=== PATIENT | female | born 1970 | race Caucasian/White ===

== ENCOUNTER 2016-12-21 16:23 | Emergency (ER) | payer OTHER, MEDICARE ==
[~2016-12-21] VITALS: Ht 170.2 cm; Wt 136.1 kg
[2016-12-21 16:34] VITALS: BP 147/82
--- NOTE | 2016-12-21 17:36 | ULTRASOUND REPORT ---
EXAMINATION: US TRIPLEX LOWER EXTREMITY, RIGHT CLINICAL INFORMATION: Edema. COMPARISON: None TECHNIQUE: Color-flow triplex imaging with spectral analysis and compression Doppler were performed on the lower extremity. FINDINGS: The exam is limited by body habitus. Respiratory variation, normal compression and augmented flow are noted throughout the left lower extremity. The visualized common femoral vein, superficial femoral vein, profunda femoral vein, popliteal vein and midcalf peroneal and posterior tibial venous segments show no evidence of deep venous thrombosis. Complex popliteal cyst measuring 3.7 x 3.8 x 6 cm. IMPRESSION: 1. Normal triplex scan without evidence of deep venous thrombosis involving the lower extremity. 2. Complex popliteal cyst.
--- NOTE | 2016-12-21 18:14 | ED UPPER/LOWER EXTREMITY COMPL ---
History of Present Illness General Chief Complaint: Lower Extremity Problems Stated Complaint: SENT BY WALK IN TO R/O DVT R LEG Source: patient Exam Limitations: no limitations Vital Signs & Intake/Output Vital Signs & Intake/Output Vital Signs Date Time Temp Pulse Resp B/P B/P Pulse O2 O2 Flow FiO2 Mean Ox Delivery Rate 12/21 1634 97.4 98 18 147/82 98 Room Air Allergies Coded Allergies: Latex, Natural Rubber (RASH 12/21/16) Reconcile Medications Albuterol Sulfate (Ventolin Hfa) 90 MCG HFA.AER.AD 2 PUF INH Q4-6 PRN PRN ASTHMA (Reported) Budesonide/Formoterol Fumarate (Symbicort 80-4.5 Mcg Inhaler) 80 MCG-4.5 MCG/ ACTUATION HFA.AER.AD 2 PUF INH BID ASTHMA (Reported) Bupropion HCl (Wellbutrin XL) 300 MG TAB.ER.24H 1 TAB PO QAM MENTAL HEALTH ( Reported) Bupropion HCl (Bupropion XL) 150 MG TAB.ER.24H 1 TAB PO QAM MENTAL HEALTH ( Reported) Buspirone HCl 10 MG TABLET 2 TAB PO TID MENTAL HEALTH (Reported) Cholecalciferol (Vitamin D3) (Vitamin D) (Unknown Strength) TABLET (Unknown Dose) PO DAILY SUPPLEMENT (Reported) Duloxetine HCl 60 MG CAPSULE.DR 2 CAP PO QAM MENTAL HEALTH (Reported) Gabapentin 300 MG CAPSULE 1 CAP PO QAM NERVE PAIN (Reported) Gabapentin 600 MG TABLET 1 TAB PO BID NERVE PAIN (Reported) Glimepiride 1 MG TABLET 1 TAB PO QAM DM (Reported) Ibuprofen 800 MG TABLET 1 TAB PO TID PAIN Levothyroxine Sodium 200 MCG TABLET 1 TAB PO DAILY THYROID (Reported) Lisinopril 10 MG TABLET 1 TAB PO DAILY BP (Reported) Metformin HCl 1,000 MG TABLET 1 TAB PO BID DM (Reported) Omeprazole 40 MG CAPSULE.DR 1 CAP PO DAILY GI (Reported) Oxycodone HCl/Acetaminophen (Percocet 5-325 MG Tablet) 5 MG-325 MG TABLET 1-2 TAB PO Q6P PRN PAIN Simvastatin (Simvastatin*) 10 MG TABLET 1 TAB PO QPM CHOLESTEROL (Reported) Triage Note: PRESENTS TO ED FOR EVALUATION RECOMMENDED BY CLINIC TO R/O DVTV OF THE RIGHT LOWER LEG. SHE REPORTS TO HAVE FALLEN LAST WEDNESDAY WITH + SWELLING AND BRUISING TO THE RIGHT LOWER EXTREMITY Triage Nurses Notes Reviewed? yes Onset: Abrupt Duration: day(s):, constant, continues in ED Timing: recent history Severity: moderate, severe Pain/Injury Location: Right: Leg, Knee. No Modifying Factors: none HPI: 46-year-old female comes into emergency room for further evaluation of right leg pain and right knee pain. Patient reports that she fell last . She had fallen out of bed and came down on her right knee and lower leg. Denies hitting her head. Denies any LOC. Patient reports that she was seen a walking clinic and had an x-ray done of her right knee. There was no fracture. She was told to come to the hospital to have a DVT ruled out. She denies any other associated symptoms. Denies any other trauma. (PREMA SALAZAR) Past History Travel History Traveled to [place] past 21 day No Medical History Any Pertinent Medical History? see below for history Cardiovascular: HTN, HIGH CHOLESTEROL Psychiatric: DEPRESSION, ANXIETY Endocrine: DM TYPE 2 History of MRSA: No History of VRE: No History of CDIFF: No Influenza Vaccine: 04/08/12 Surgical History Surgical History: non-contributory Psychosocial History Who do you live with Friend Services at Home None What is your primary language Monegasque Tobacco Use: Current Daily Use Daily Tobacco Use Amount/Type: => 5 Cigarettes daily Family History Hx Contributory? No (PREMA SALAZAR) Review of Systems Review of Systems Constitutional: Reports: no symptoms. EENTM: Reports: no symptoms. Respiratory: Reports: no symptoms. Cardiovascular: Reports: no symptoms. Gastrointestinal/Abdominal: Reports: no symptoms. Genitourinary: Reports: no symptoms. Musculoskeletal: Reports: see HPI. Skin: Reports: see HPI. Neurological/Psychological: Reports: no symptoms. Hematologic/Endocrine: Reports: no symptoms. Immunological: Reports: no symptoms. All Other Systems: Reviewed and Negative (PREMA SALAZAR) Physical Exam Physical Exam General Appearance: well developed/nourished, mild distress Head: atraumatic Eyes: Bilateral: normal appearance. Ears, Nose, Throat: normal ENT inspection, hearing grossly normal Neck: normal inspection Cardiovascular/Respiratory: no respiratory distress Back: normal inspection Leg Right: ecchymosis, soft tissue tenderness, limited range of motion Knee Right: ecchymosis, soft tissue tenderness, limited range of motion Neurologic/Tendon: normal sensation, normal motor functions, normal tendon functions, responds to pain, no evidence tendon injury, no pulse deficit Skin: intact, normal color, warm/dry Lymphatic: no anterior cervical ismael (PREMA SALAZAR) Progress Differential Diagnosis: contusion, dislocation, fracture, gout, septic arthritis , sprain, tendon injury Plan of Care: Orders Procedure Date/time Status Durable Medical Equipment 12/21 1848 Active Diagnostic Imaging: Viewed by Me: Radiology Read, Ultrasound. Discussed w/RAD: Radiology Read, Ultrasound. Radiology Impression: EXAM TYPE: RAD - [id number]-[id number], RIGHT EXAMINATION: XR TIBIA AND FIBULA, RIGHT CLINICAL INFORMATION: Right lower extremity pain and bruising. COMPARISON: None TECHNIQUE: AP and lateral views of the right tibia and fibula were obtained. FINDINGS: No acute fracture or cortical disruption. Anatomic alignment at the knee and ankle. Mild degenerative changes of the knee with osteophyte formation. Small plantar heel spur. There is extensive soft tissue swelling. Lateral soft tissue calcifications at the level of the mid fibula. IMPRESSION: Extensive soft tissue swelling. No acute osseous abnormality. DICTATED BY: MARITA KNIGHT MD DATE/TIME DICTATED:12/21/161836 UPPER LEATHER CUTTER:RAMOS DATE/TIME TRANSCRIBED:12/21/161836, SERVICE DATE: 12/21/16 EXAM TYPE: US - US-UNILATERAL VENOUS DOPPLER EXAMINATION: US TRIPLEX LOWER EXTREMITY, RIGHT CLINICAL INFORMATION: Edema. COMPARISON: None TECHNIQUE: Color-flow triplex imaging with spectral analysis and compression Doppler were performed on the lower extremity. FINDINGS: The exam is limited by body habitus. Respiratory variation, normal compression and augmented flow are noted throughout the left lower extremity. The visualized common femoral vein, superficial femoral vein, profunda femoral vein, popliteal vein and midcalf peroneal and posterior tibial venous segments show no evidence of deep venous thrombosis. Complex popliteal cyst measuring 3.7 x 3.8 x 6 cm. IMPRESSION: 1. Normal triplex scan without evidence of deep venous thrombosis involving the lower extremity. 2. Complex popliteal cyst. DICTATED BY: JESSICA QUIROZ MD DATE/ TIME DICTATED:12/21/161724 UPPER LEATHER CUTTER:RAMOS DATE/TIME TRANSCRIBED: 12/21/161724 CONFIDENTIAL, DO NOT COPY WITHOUT APPROPRIAT (PREMA SALAZAR) Departure Departure Disposition: HOME OR SELF CARE Condition: Stable Clinical Impression Primary Impression: Contusion of right lower leg Referrals: BULL GROSS,KATHY Ocampo (PCP/Family) MAURICE MONTALVO,JEREMIAH Additional Instructions: Take ibuprofen for pain. Follow-up with orthopedic doctor. Return if any concerns worsening symptoms. Ice. Rest. Weightbearing as tolerated. Please go over all results of today's visit with your primary care doctor. Contact your primary care doctor to let them know you were here in the emergency room. There may be nonspecific findings which may not be related to your visit today here in the emergency room but may require further evaluation and chronic monitoring by your primary care doctor. If you had a laceration today the chance of foreign body always remains. You should follow-up with your primary care doctor for recheck in 3-5 days for a wound check. If you had an x-ray done there is a chance that a fracture could have been missed on initial read and you should follow-up with your primary care doctor for repeat x-rays if symptoms persist. If your blood pressure was elevated here in the emergency room please have rechecked by her primary care doctor within the next 48 hours by your primary care doctor. If you were prescribed a narcotic here in the emergency room or any type of controlled substances you're not allowed to drive while taking this medication or operate any type of heavy machinery. Narcotics can make you feel lightheaded dizziness nausea and can cause constipation. You may need to belt picker a stool softener. Thank you for choosing [facility] emergency room. Please return to the emergency room immediately if you have any other concerns worsening of symptoms. Departure Forms: Customer Survey General Discharge Information Prescriptions: Current Visit Scripts Oxycodone HCl/Acetaminophen (Percocet 5-325 MG Tablet) 1-2 TAB PO Q6P PRN PAIN #10 TAB Ibuprofen 1 TAB PO TID #30 TAB Comments 12/21/2016 7:19:07 PM Patient clinically looks well. Nontoxic-appearing. In no apparent distress. No evidence of fracture. Follow-up with primary care doctor. Follow-up with orthopedic. Return if any other concerns. (PREMA SALAZAR) PA/LINING MAKER Co-Sign Statement Statement: ED Attending supervision documentation- [] I saw and evaluated the patient. I have also reviewed all the pertinent lab results and diagnostic results. I agree with the findings and the plan of care as documented in the PA's/LINING MAKER's documentation. [X] I have reviewed the ED Record and agree with the PA's/LINING MAKER's documentation. [] Additions or exceptions (if any) to the PAs/LINING MAKER's note and plan are summarized below: [] (KARY MONTALVO,DONN Whaley)
[2016-12-21] MEDS ORDERED: LISINOPRIL10 M1 PO (18:35)
[2016-12-21] MEDS ORDERED: GABAPENTIN300 M2 PO (18:35)
[2016-12-21] MEDS ORDERED: DULOXETINE HCL60 MG PO (18:36)
[2016-12-21] MEDS ORDERED: GABAPENTIN600 M1 PO (18:36)
[2016-12-21] MEDS ORDERED: WELLBUTRIN XL300 M2 PO (18:37)
[2016-12-21] MEDS ORDERED: BUPROPION XL150 MG PO (18:37)
[2016-12-21] MEDS ORDERED: BUSPIRONE HCL10 M1 PO (18:38)
[2016-12-21] MEDS ORDERED: SIMVASTATIN10 M1 PO (18:39)
[2016-12-21] MEDS ORDERED: GLIMEPIRIDE1 M1 PO (18:39)
[2016-12-21] MEDS ORDERED: VENTOLIN HFA18 GM INH (18:39)
[2016-12-21] MEDS ORDERED: SYMBICORT 80-10.2 GM INH (18:40)
[2016-12-21] MEDS ORDERED: METFORMIN HCL1000 M1 PO (18:40)
[2016-12-21] MEDS ORDERED: OMEPRAZOLE40 M1 PO (18:40)
[2016-12-21] MEDS ORDERED: LEVOTHYROXINE200 MC1 PO (18:40)
[2016-12-21] MEDS ORDERED: VITAMIN D1000 UNIT PO (18:40)
--- NOTE | 2016-12-21 18:41 | RADIOLOGY REPORT ---
EXAMINATION: XR TIBIA AND FIBULA, RIGHT CLINICAL INFORMATION: Right lower extremity pain and bruising. COMPARISON: None TECHNIQUE: AP and lateral views of the right tibia and fibula were obtained. FINDINGS: No acute fracture or cortical disruption. Anatomic alignment at the knee and ankle. Mild degenerative changes of the knee with osteophyte formation. Small plantar heel spur. There is extensive soft tissue swelling. Lateral soft tissue calcifications at the level of the mid fibula. IMPRESSION: Extensive soft tissue swelling. No acute osseous abnormality.
[2016-12-21] MEDS ORDERED: IBUPROFEN800 M1 PO (19:10)
[2016-12-21] MEDS ORDERED: PERCOCET 5-3251 EACH PO (19:10)
== END 2016-12-21 19:03 ==
LOC: ERH 16:23
DX: S80.11XA Contusion of right lower leg, initial encounter (principal); W06.XXXA Fall from bed, initial encounter; Y93.9 Activity, unspecified; Y92.9 Unspecified place or not applicable
CPT/HCPCS: 73590-RT

== ENCOUNTER 2017-09-14 13:29 | Inpatient (IN) | payer OTHER, MEDICARE ==
[~2017-09-14] VITALS: Ht 170.2 cm; Wt 136.5 kg
[~2017-09-14 13:29] MED LIST: ASPIRIN EC81 M1 PO; BIOTENE PBF473 ML PO; BUPROPION XL150 MG PO; BUSPIRONE HCL10 M1 PO; CEPHALEXIN500 M3 PO; DULOXETINE HCL60 MG PO; FUROSEMIDE20 M1 PO; GABAPENTIN300 M2 PO; GABAPENTIN600 M1 PO; GLIMEPIRIDE1 M1 PO; IBUPROFEN800 M1 PO; LEVOTHYROXINE200 MC1 PO; LISINOPRIL10 M1 PO; METFORMIN HCL1000 M1 PO; OMEPRAZOLE40 M1 PO; PERCOCET 5-3251 EACH PO; SIMVASTATIN10 M1 PO; SINGULAIR10 M1 PO; SULFAMETHOXAZO1 EAC1 PO; SYMBICORT 80-10.2 GM INH; TRAMADOL HCL50 M1 PO; VENTOLIN HFA18 GM INH; VITAMIN D1000 UNIT PO; VOLTAREN100 GM TOP; WELLBUTRIN XL300 M2 PO
[2017-09-14 19:05] LABS: ABSOLUTE BASOPHIL COUNT 0.1 /CUMM (0.0-0.2); ABSOLUTE EOSINOPHIL COUNT 0.3 /CUMM (0.0-0.7); ABSOLUTE GRANULOCYTE CT 5.1 /CUMM (1.4-6.5); ABSOLUTE LYMPH COUNT 2.4 /CUMM (1.2-3.4); ABSOLUTE MONOCYTE COUNT 0.5 /CUMM (0.10-0.60); BASOPHIL % 0.7 % (0.0-2.0); GRANULOCYTE % 61.4 % (42.2-75.2); HEMATOCRIT 36.6 % (37-47); MEAN CORPUSCULAR HGB 26.8 PG (27.0-31.0); MEAN CORPUSCULAR HGB CONC 32.9 G/DL (33.0-37.0); MEAN CORPUSCULAR VOLUME 81.4 FL (81.0-99.0); MEAN PLATELET VOLUME 8.2 FL (7.4-10.4); PLATELET COUNT 258 /CUMM (130-400); RBC DISTRIBUTION WIDTH 16.5 % (11.5-14.5); RED BLOOD CELL CT 4.49 /CUMM (4.20-5.40); WHITE BLOOD CELL COUNT 8.4 /CUMM (4.8-10.8)
--- NOTE | 2017-09-14 19:34 | ED UPPER/LOWER EXTREMITY COMPL ---
History of Present Illness General Chief Complaint: Lower Extremity Problems Stated Complaint: L FOOT INFECTION Source: patient Exam Limitations: no limitations Allergies Coded Allergies: Latex, Natural Rubber (RASH 12/21/16) codeine (RASH 09/14/17) Reconcile Medications Albuterol Sulfate (Ventolin Hfa) 90 MCG HFA.AER.AD 2 PUF INH Q4-6 PRN PRN ASTHMA (Reported) Aspirin (Ecotrin*) 81 MG TABLET.DR 1 TAB PO DAILY heart health (Reported) Budesonide/Formoterol Fumarate (Symbicort 80-4.5 Mcg Inhaler) 80 MCG-4.5 MCG/ ACTUATION HFA.AER.AD 2 PUF INH BID ASTHMA (Reported) Bupropion HCl (Wellbutrin XL) 300 MG TAB.ER.24H 1 TAB PO QAM MENTAL HEALTH ( Reported) Bupropion HCl (Bupropion XL) 150 MG TAB.ER.24H 1 TAB PO QAM MENTAL HEALTH ( Reported) Buspirone HCl 10 MG TABLET 2 TAB PO TID MENTAL HEALTH (Reported) Cephalexin 500 MG CAPSULE 1 CAP PO Q6 ANTIBIOTIC, INFECTION (Reported) Diclofenac Sodium (Voltaren) 1 % GEL..GRAM. 1 GM TOP 4 TIMES/DAY PAIN ( Reported) apply to affected area(s) Duloxetine HCl 60 MG CAPSULE.DR 1 CAP PO BID MENTAL HEALTH (Reported) Furosemide 20 MG TABLET 1 TAB PO DAILY WATER RETENTION (Reported) Gabapentin 300 MG CAPSULE 1 CAP PO QAM NERVE PAIN (Reported) Gabapentin 600 MG TABLET 1 TAB PO BID NERVE PAIN (Reported) Glimepiride 1 MG TABLET 1 TAB PO QAM DM (Reported) Ibuprofen 800 MG TABLET 1 TAB PO TID PAIN Levothyroxine Sodium 200 MCG TABLET 1 TAB PO DAILY AC THYROID (Reported) Lisinopril 10 MG TABLET 1 TAB PO DAILY BP (Reported) Metformin HCl 1,000 MG TABLET 1 TAB PO BID DM (Reported) Montelukast Sodium (Singulair) 10 MG TABLET 1 TAB PO DAILY ALLERGIES ( Reported) Omeprazole 40 MG CAPSULE.DR 1 CAP PO DAILY GI (Reported) Saliva Substitute Combo No.9 (Biotene Pbf) 473 ML MOUTHWASH 5 ML PO TID PRN MUCOUS (Reported) Simvastatin (Simvastatin*) 10 MG TABLET 1 TAB PO QPM CHOLESTEROL (Reported) Sulfamethoxazole/Trimethoprim (Sulfamethoxazole-Tmp Ds Tablet) 800 MG-160 MG TABLET 1 TAB PO BID ANTIBIOTIC, INFECTION (Reported) Tramadol HCl 50 MG TABLET 1 TAB PO TIDPRN PRN PAIN (Reported) Triage Note: PT SENT IN BY PCP FOR FOOT INFECTION. DR. GOTTLIEB WOULD LIKE WOUND CHECKED FOR OSTEO AND WOULD LIKE PT TO RECEIVE IV ABX. PT IS CURRETNLY ON CLINDA FOR PAST TWO DAYS AND WOUND IS GETTING WORSE. Triage Nurses Notes Reviewed? yes Onset: Gradual Duration: week(s): Timing: recent history Severity: moderate Pain/Injury Location: Left: Leg. HPI: 47yo female with hx of DM presents to ED complaining of cellulitis to left lower leg. Patient states that she saw her primary care doctor last week and has been on clindamycin antibiotics for over one week however her symptoms have been persistent and worsening. Patient saw her primary care doctor again today for a follow-up and it was recommended she reports to the emergency department for IV antibiotics and possible hospital admission. Patient complains of redness, swelling, increasing pain to left foot and lower leg. Patient denies fevers, chills, abdominal pain, nausea, vomiting. (Magi BALLARD,Emy Beckham) Vital Signs & Intake/Output Vital Signs & Intake/Output Vital Signs Date Time Temp Pulse Resp B/P B/P Pulse O2 O2 Flow FiO2 Mean Ox Delivery Rate 09/15 0152 97.0 84 15 110/56 96 Room Air 09/14 2316 97.9 79 18 150/76 97 Room Air 09/14 2010 98.5 86 20 149/71 97 Room Air 09/14 1353 96.8 97 18 128/70 96 Room Air ED Intake and Output 09/15 0000 09/14 1200 Intake Total 1000 Output Total Balance 1000 Intake, IV 1000 Patient 303 lb Weight Weight Reported by Patient Measurement Method (Melodie MONTALVO,Rashi Jj) Past History Travel History Traveled to [place] past 21 day No Medical History Any Pertinent Medical History? 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 No (Emy Tabares) Review of Systems Review of Systems Constitutional: Reports: no symptoms. EENTM: Reports: no symptoms. Respiratory: Reports: no symptoms. Cardiovascular: Reports: no symptoms. Gastrointestinal/Abdominal: Reports: no symptoms. Genitourinary: Reports: no symptoms. Musculoskeletal: Reports: see HPI. Skin: Reports: see HPI. Neurological/Psychological: Reports: no symptoms. Hematologic/Endocrine: Reports: no symptoms. Immunological: Reports: no symptoms. All Other Systems: Reviewed and Negative (Emy Tabares) Physical Exam Physical Exam General Appearance: well developed/nourished, no apparent distress, alert, awake Head: atraumatic, normal appearance Eyes: Bilateral: normal appearance. Ears, Nose, Throat: hearing grossly normal Neck: normal inspection, supple, full range of motion Cardiovascular/Respiratory: normal breath sounds, regular rate/rhythm, no respiratory distress Peripheral Pulses: 2+ dorsalis pedis (R), 2+ dorsalis pedis (L) Back: normal inspection, normal range of motion Leg Left: prominent lymphedema with erythema, warmth, tenderness to lower extremity and dorsal foot Leg Right: lymphedema present without erythema or tenderness, less severe compared to left extremity Hip Left: normal range of motion, normal inspection Hip Right: normal range of motion, normal inspection Knee Left: normal range of motion, normal inspection Knee Right: normal range of motion, normal inspection Foot Left: erythema/tenderness/swelling to dorsal foot Foot Right: normal inspection, normal range of motion Neurologic/Tendon: normal sensation, normal motor functions, normal tendon functions Skin: see erythema as described to left lower extremity above (Emy Tabares) Progress Differential Diagnosis: cellulitis, DVT, DVT, lymphedema, venous stasis Diagnostic Imaging: Viewed by Me: Radiology Read. Discussed w/RAD: Radiology Read. Radiology Impression: PATIENT: OMERO KNOX PRESENT AGE: 47 PATIENT ACCOUNT NO: [id number] : 70 LOCATION: [facility] ORDERING PHYSICIAN: Emy BALLARD SERVICE DATE: 09/14/17-1839 EXAM TYPE: RAD - XRY-FOOT COMPLETE, LEFT EXAMINATION: LEFT FOOT 3 VIEWS CLINICAL INFORMATION: Left foot cellulitis. COMPARISON: None. TECHNIQUE: AP, lateral, oblique views of the left foot were obtained. FINDINGS: There are no fractures or dislocations. Again identified are diminutive phalanges to the fourth digit. There is soft tissue swelling to the dorsum of the foot. There is no ankle joint effusion. IMPRESSION : Diffuse soft tissue swelling. No evidence for acute osseous injury. No bony destruction demonstrable. DICTATED BY: Ghassan Hayes MD DATE/TIME DICTATED:1931 LAUNDRY HOUSEKEEPING AIDE:CISCO DATE/TIME TRANSCRIBED:09/14/171931 CONFIDENTIAL, DO NOT COPY WITHOUT APPROPRIATE AUTHORIZATION. <Electronically signed in Other Vendor System> SIGNED BY: Ghassan Hayes MD 09/14/171936 (Magi BALLARD,Eym Beckham) Plan of Care: Orders Procedure Date/time Status Consistent Carbohydrate 1 09/15 B Active Misc Message 09/14 2149 Active ED Holding Orders 09/14 2149 Active Admit to inpatient 09/14 2149 Active Vital Signs 09/14 2149 Active Code Status 09/14 2149 Active Patient Data 09/14 2120 Active Intake & Output 09/14 190 Active Saline Lock 09/14 1839 Active BLOOD CULTURE 09/14 184 Active LACTIC ACID 09/14 184 Complete COMPREHENSIVE METABOLIC PANEL 09/14 184 Complete CBC WITHOUT DIFFERENTIAL 09/14 1839 Complete Laboratory Tests 09/14/17 2140: Lactic Acid Cancelled 09/14/17 1855: Anion Gap 8, Estimated GFR > 60, BUN/Creatinine Ratio 12.9, Glucose 96, Lactic Acid 1.5, Calcium 9.9, Total Bilirubin 0.4, AST 25, ALT 28, Alkaline Phosphatase 64, Total Protein 7.1, Albumin 4.3, Globulin 2.8, Albumin/Globulin Ratio 1.5, CBC w Diff NO MAN DIFF REQ, RBC 4.49, MCV 81.4, MCH 26.8 L, MCHC 32.9 L, RDW 16.5 H, MPV 8.2, Gran % 61.4, Lymphocytes % 28.2, Monocytes % 5.7, Eosinophils % 4.0, Basophils % 0.7, Absolute Granulocytes 5.1, Absolute Lymphocytes 2.4, Absolute Monocytes 0.5, Absolute Eosinophils 0.3, Absolute Basophils 0.1 Microbiology 09/14 1930 BLOOD: Blood Culture - RECD 09/14 1854 BLOOD: Blood Culture - RECD Patient has had no improvement despite oral clindamycin for over one week. Patient has chronic swelling to bilateral lower extremities related to lymphedema however tenderness and mild erythema to left lower extremity with significant increase in swelling. The symptoms are consistent with cellulitis. Dr. Sewell present to see and evaluate the patient, he agrees that this patient requires hospital admission for further evaluation. Patient started on IV antibiotics. The patient was discussed with hospitalist Dr. Charles regarding general medicine admission. Patient requires IV antibiotics, repeat labs, follow up blood cultures, possible ID consult. Case management in agreement with this plan. (Magi BALLARD,Emy Beckham) (Melodie MONTALVO,Rashi Jj) Departure Departure Disposition: STILL A PATIENT Condition: Stable Clinical Impression Primary Impression: Cellulitis Qualifiers: Site of cellulitis: extremity Site of cellulitis of extremity: lower extremity Laterality: left Qualified Code: L03.116 - Cellulitis of left lower limb Referrals: Yuni GROSS,Juan Ocampo (PCP/Family) Departure Forms: Customer Survey General Discharge Information Admission Note Documentation of Exam: Documentation of any treatments & extenuating circumstances including Concerns Regarding Discharge (functional status, medication knowledge or non-compliance, living conditions, etc.) that warrant an admission rather than observation: [ LEFT lower extremity cellulitis, failed outpatient antibiotic treatment, WBCs trending upward, requiring IV antibiotics, repeat labs, follow up blood cultures , premature discharge would be medically unsafe] (Emy Tabares) PA/INSPECTOR CIRCUITRY NEGATIVE Co-Sign Statement Statement: ED Attending supervision documentation- [X] I saw and evaluated the patient. I have also reviewed all the pertinent lab results and diagnostic results. I agree with the findings and the plan of care as documented in the PA's/INSPECTOR CIRCUITRY NEGATIVE's documentation. Patient presents for evaluation for possible left lower extremity cellulitis unresponsive to outpatient management. Physical examination reveals redness and mild warmth of the anterior left leg and ankle. [] I have reviewed the ED Record and agree with the PA's/INSPECTOR CIRCUITRY NEGATIVE's documentation. [] Additions or exceptions (if any) to the PAs/INSPECTOR CIRCUITRY NEGATIVE's note and plan are summarized below: [] (Melodie MONTALVO,Rashi Jj)
--- NOTE | 2017-09-14 19:37 | RADIOLOGY REPORT ---
EXAMINATION: LEFT FOOT 3 VIEWS CLINICAL INFORMATION: Left foot cellulitis. COMPARISON: None. TECHNIQUE: AP, lateral, oblique views of the left foot were obtained. FINDINGS: There are no fractures or dislocations. Again identified are diminutive phalanges to the fourth digit. There is soft tissue swelling to the dorsum of the foot. There is no ankle joint effusion. IMPRESSION: Diffuse soft tissue swelling. No evidence for acute osseous injury. No bony destruction demonstrable.
--- NOTE | 2017-09-14 22:20 | History & Physical ---
Riddhi Soto MD 09/14/17 2220: General Information and HPI MD Statement: I have seen and personally examined OMERO CASTELAN and documented this H&P. The patient is a 47 year old F who presented with a patient stated chief complaint of [left leg cellulitis]. Source of Information: patient, old records History of Present Illness: 47 years old female with PMH of hypothyroidism, hypertension, hyperlipidemia, anxiety, depression, asthma, jpn-vdttugm-fobuixvdt diabetes mellitus, chronic lymphedema came to ED with left leg pain, erythema, swelling for past week which started on Wednesday , pt saw her PCP on who prescribed her Clindamycin and Tylenol however patient noticed itchy rash on her upper chest and back. Patient think she is allergic to codeine which causes a rash. Patient noticed worsening of her left lower extremity swelling and redness, associated with nausea, fever and chills. Patient currently is using crutches due to pain in his lower extremity. The patient doesn't measure her blood sugar regularly at home however her last HbA1c was 6.9C month ago Of note patient was recently admitted on April 2017 for left leg cellulitis for which she was treated with cefazolin. Patient denies any recent trauma to her leg or recent travel. Allergies/Medications Allergies: Coded Allergies: Latex, Natural Rubber (RASH 12/21/16) codeine (RASH 09/14/17) Past History Travel History Traveled to [place] past 21 day No Medical History Neurological: peripheral neuropathy EENT: NONE Cardiovascular: hypertension, hyperlipidemia Respiratory: asthma Gastrointestinal: GERD Hepatic: NONE Renal: NONE Musculoskeletal: osteoarthritis, R HAND DEFORMITY Psychiatric: anxiety, depression Endocrine: diabetes, hypothyroidism Blood Disorders: NONE Cancer(s): UTERINE CANCER [employer]/Reproductive: NONE History of MRSA: Yes History of VRE: No History of CDIFF: No Surgical History Surgical History: hysterectomy, LITHOTRIPSY CYSTOCELE REPAIR ARTHROSCOPY BILATERAL KNEES BLE VEIN PROCEDURES (vein procedure both legs) Past Family/Social History Family History Relations & Conditions if any Relation not specified for: *No pertinent family history Psychosocial History Who Do You Live With? parent Services at Home: None Primary Language: Niuean ETOH Use: denies use Illicit Drug Use: denies illicit drug use Functional Ability ADLs Independent: dressing, eating, toileting, bathing. Ambulation: independent, walker IADLs Independent: shopping, housework, food prep, telephone, transportation, medication admin. Review of Systems Review of Systems Constitutional: Reports: chills, diaphoresis, fever. EENTM: Denies: no symptoms. Cardiovascular: Denies: no symptoms. Respiratory: Denies: no symptoms. GI: Reports: nausea. Genitourinary: Denies: no symptoms. Musculoskeletal: Denies: no symptoms. Skin: Reports: see HPI. Neurological/Psychological: Denies: no symptoms. Exam & Diagnostic Data Last 24 Hrs of Vital Signs/I&O Vital Signs Date Time Temp Pulse Resp B/P B/P Pulse O2 O2 Flow FiO2 Mean Ox Delivery Rate 09/15 0152 97.0 84 15 110/56 96 Room Air 09/14 2316 97.9 79 18 150/76 97 Room Air 09/14 2010 98.5 86 20 149/71 97 Room Air 09/14 1353 96.8 97 18 128/70 96 Room Air Intake & Output 09/15 0800 09/15 0000 09/14 1600 Intake Total 1000 Output Total Balance 1000 Intake, IV 1000 Patient 303 lb 303 lb Weight Weight Reported by Patient Reported by Patient Measurement Method Physical Exam General Appearance Alert, Oriented X3, Cooperative, obese Skin eryhthema maculopapular rash on the upper chest and back Skin Temp/Moisture Exam: Warm/Dry Sepsis Skin Exam (color): Normal for Ethnicity HEENT Atraumatic, PERRLA, EOMI, Mucous Membr. moist/pink Neck Supple, No JVD, No thryomegaly Cardiovascular Normal S1, Normal S2 Lungs Clear to Auscultation, Normal Air Movement Abdomen Normal Bowel Sounds, Soft, No Tenderness Neurological Normal Speech, Strength at 5/5 X4 Ext Extremities No Clubbing, No Cyanosis, left leg show erythema up to the level of the knee, few scratch huang ,2 + pittng edema more on the left leg, right UE has a deformity of her hand with a single digit Vascular Normal Pulses Assessment/Plan Assessment: 47 years old female with PMH of hypothyroidism, hypertension, hyperlipidemia, anxiety, depression, asthma, [id number]-whfgjohpk diabetes mellitus, chronic lymphedema came to ED with left leg pain, erythema, swelling for past week which started on Wednesday , pt saw her PCP on who prescribed her Clindamycin and Tylenol however patient noticed itchy rash on her upper chest and back. Most likely has symptoms of cellulitis in the context of chronic lymphedema however we have to rule out DVT. Vital signs on admission: Temperature 98.5, pulse 86, respirations 20, blood pressure 149/71, pulse ox 97 on room air Admission: WBC 8.4, Hemoglobin 12, Lactic Acid 1.5, Sodium 136, Potassium 4.4, Anion Gap 8, Glucose 96 Left Foot X-Ray: Soft Tissue Swelling with No Bone Destruction #Left lower extremity cellulitis: Admit to general medicine floor IV cefazolin 1 g every 8 Follow-up on blood culture Elevate leg Doppler Ultrasound to rule out DVT #Diabetes mellitus Discontinued home meds Fingerstick glucose Insulin sliding scale Check hemoglobin A1c #Chronic medical conditions: Continue home meds Patient is full code Consistent carbohydrate diet DVT prophylaxis with subcutaneous Lovenox As Ranked By This Provider Problem List: 1. Cellulitis Qualifiers Site of cellulitis: extremity Site of cellulitis of extremity: lower extremity Laterality: left Qualified Code: L03.116 - Cellulitis of left lower limb 2. Diabetes mellitus Core Measures/Misc (04/18) Acute Coronary Syndrome ACS Diagnosis: No Congestive Heart Failure Congestive Heart Failure Diagnosis No Cerebrovascular Accident CVA/TIA Diagnosis: No VTE (View Protocol) VTE Risk Factors Age>40 No Mechanical VTE Prophylaxis d/t N/A MechProphylax Ordered No VTE Pharm Prophylaxis d/t NA PharmProphylax ordered Sepsis (View protocol) Sepsis Present: No Jose F MONTALVO,[facility] 09/15/17 0513: General Information and HPI Allergies/Medications Home Med list Albuterol Sulfate (Ventolin Hfa) 90 MCG HFA.AER.AD 2 PUF INH Q4-6 PRN PRN ASTHMA (Reported) Aspirin (Ecotrin*) 81 MG TABLET.DR 1 TAB PO DAILY heart health (Reported) Budesonide/Formoterol Fumarate (Symbicort 80-4.5 Mcg Inhaler) 80 MCG-4.5 MCG/ ACTUATION HFA.AER.AD 2 PUF INH BID ASTHMA (Reported) Bupropion HCl (Wellbutrin XL) 300 MG TAB.ER.24H 1 TAB PO QAM MENTAL HEALTH ( Reported) Bupropion HCl (Bupropion XL) 150 MG TAB.ER.24H 1 TAB PO QAM MENTAL HEALTH ( Reported) Buspirone HCl 10 MG TABLET 2 TAB PO TID MENTAL HEALTH (Reported) Diclofenac Sodium (Voltaren) 1 % GEL..GRAM. 1 GM TOP 4 TIMES/DAY PAIN ( Reported) apply to affected area(s) Duloxetine HCl 60 MG CAPSULE.DR 1 CAP PO BID MENTAL HEALTH (Reported) Furosemide 20 MG TABLET 1 TAB PO DAILY WATER RETENTION (Reported) Gabapentin 300 MG CAPSULE 1 CAP PO QAM NERVE PAIN (Reported) Gabapentin 600 MG TABLET 1 TAB PO BID NERVE PAIN (Reported) Glimepiride 1 MG TABLET 1 TAB PO QAM DM (Reported) Ibuprofen 800 MG TABLET 1 TAB PO TID PAIN Levothyroxine Sodium 200 MCG TABLET 1 TAB PO DAILY AC THYROID (Reported) Lisinopril 10 MG TABLET 1 TAB PO DAILY BP (Reported) Metformin HCl 1,000 MG TABLET 1 TAB PO BID DM (Reported) Omeprazole 40 MG CAPSULE.DR 1 CAP PO DAILY GI (Reported) Saliva Substitute Combo No.9 (Biotene Pbf) 473 ML MOUTHWASH 5 ML PO TID PRN MUCOUS (Reported) Simvastatin (Simvastatin*) 10 MG TABLET 1 TAB PO QPM CHOLESTEROL (Reported) Tramadol HCl 50 MG TABLET 1 TAB PO TIDPRN PRN PAIN (Reported) Resident Review Statement Resident Statement: examined this patient, discussed with business services intern, agreed with business services intern, discussed with nursing Other Findings: Ms. Castelan is a 47 year old female with past medical history of hypothyroidism, hypertension, hyperlipidemia, anxiety, depression, asthma, fre-imjbyal-jhwvqiehm diabetes mellitus, chronic lymphedema, recurrent bilateral cellulitis who presented to ED with chief complain of left lower extremity erythema, swelling and pain for 2 days failed outpatient clindamycin. Patient reported that last week she noticed redness and swelling of left lower extremity associated with "fever 98, baseline body temperature 95", chills. Patient was evaluated by primary care physician was started on by mouth clindamycin and Percocet for pain however swelling continue to progress and patient noticed rash 2 days after starting clindamycin and Percocet. Patient has been exposed to clindamycin before without hx of rash. Denied any chest pain, palpitation, abdominal pain, nausea or vomiting, diarrhea, body aches. No previous history of osteomyelitis. Diabetes has been well controlled, last hemoglobin A1c 2 months ago 6.97 reported. No history of trauma or animal bite. On admission Vital signs temperature 96.8, pulse 97, blood pressure 128/70, respiratory rate 18 and saturation 96% room air Physical exam as above Problem list Left lower extremity cellulitis mostly Streptococcus Chronic lymphedema Diabetes Hypertension and hyperlipidemia Hypothyroidism Plan Admit to general medical floor Vitals every shift Follow blood culture IV cefazolin Left lower extremity venous Doppler Accu check and NovoLog sliding scale medium dose Continue home medication Leg elevation DVT prophylaxis Lovenox Diet diabetic with sodium 2 g restriction Code full Leslie Charles 09/15/17 0524: Attending MD Review Statement Attending Statement Attending MD Statement: examined this patient, discuss w/resident/PA/CLOCK SMITH, agreed w/resident/PA/CLOCK SMITH, reviewed EMR data (avail), reviewed images, amended to note Attending Assessment/Plan: CC: Left lower extremity cellulitis failed outpatient treatment PMH: HTN, HLD, hypothyroidism, asthma, anxiety/depression, DM, lymphedema, neuropathy, uterine cancer S/P hysterectomy Patient noticed left leg pain, swelling, redness approximately 10-12 days back, as she gets recurrent cellulitis she followed up with primary care physician at that time and was started on clindamycin and Tylenol codeine combination. She completed 10 days of clindamycin without much relief, her redness, pain, swelling still persist so her primary care physician suggested to her to go to hospital for probable IV antibiotics. Patient had some rash and itchiness after the previous medication and is not sure whether it was secondary to clindamycin, Tylenol or codeine but most likely flow codeine as patient had clindamycin and Tylenol in the past. Patient did not have any open wounds, trauma to left lower extremity. Patient felt feverish at home but otherwise ROS unremarkable. Vitals: T max 98.5, pulse 97, RR 18, blood pressure 128/70, saturating well on room air. On exam: A O 3, cooperative, no acute distress, neck supple, JVD normal, no lymphadenopathy, mucosa moist, no focal neurological deficit, no dependent edema , right hand deformity, mild redness, swelling, tenderness left lower extremity. Bilateral lower extremity lymphedema left more than right CVS: S1-S2, RRR. RS: Clear to auscultate bilaterally. Abdomen: Soft, NT, ND, bowel sounds present. X-ray foot: Diffuse soft tissue swelling. No evidence for acute osseous injury. No bony destruction demonstrable. Assessment and plan 47-year-old female with past medical history significant for HTN, HLD, hypothyroidism, asthma, anxiety/depression, DM, lymphedema, neuropathy, presented in ER for persistent left lower extremity pain, redness, swelling since last 10-12 days, completed by mouth antibiotics outpatient without much relief. Patient has mild cellulitis of left lower extremity, failed outpatient treatment. She does not have any significant fever or leukocytosis. There are no open wounds, crepitation, ulcer or fluctuations. We will continue with cefazolin at this point. + Left lower extremity cellulitis + History of HTN, HLD, hypothyroidism, asthma, anxiety/depression, DM, lymphedema, neuropathy - Admit to general medicine - Trend lactate - Follow-up cultures - Continue IV cefazolin - Leg elevation - DVT Doppler - Adequate pain control - DVT prophylaxis - continue sliding scale insulin - Continue all her home medications except oral hypoglycemic
[2017-09-15 02:00] VITALS: BP 110/68
--- NOTE | 2017-09-15 05:19 | Admission Certification ---
Admission Certification Certification Statement - As attending physician, I certify that at the time of - admission, based on clinical presentation, severity of - symptoms, need for further diagnostic testing and - therapeutic interventions, and risk of adverse outcomes - without in-hospital treatment, in my clinical assessment, - this patient requires an acute hospital stay for a minimum - of two nights or longer. I have also considered psychsocial - factors such as support system, advanced age, financial - issues, cognitive issues, and failed out-patient treatments, - past re-admission history, safety of patient, and lack of - compliance as applicable. Specific rationale supporting this admission is: Left leg cellulitis
[2017-09-15 06:06] VITALS: BP 116/70
--- NOTE | 2017-09-15 07:47 | PN- Housestaff ---
Subjective Follow-up For: LLE Cellulitis Subjective: Patient seen and examined. She is seen sitting upright in bed resting comfortably. She appears to be in no acute distress. She reports that her left leg continues to be severely tender to the touch but admits that it does look mildly less red today; it is apparently more swollen that usual. She otherwise denies any subjective fever/chills. Review of Systems Constitutional: Reports: see HPI. Objective Last 24 Hrs of Vital Signs/I&O Vital Signs Date Time Temp Pulse Resp B/P B/P Pulse O2 O2 Flow FiO2 Mean Ox Delivery Rate 09/15 1432 98.1 94 18 110/72 96 09/15 1026 Room Air 09/15 0606 97.5 83 20 116/70 96 Room Air 09/15 0200 97.9 76 20 110/68 95 Room Air 09/15 0152 97.0 84 15 110/56 96 Room Air 09/14 2316 97.9 79 18 150/76 97 Room Air 09/14 2010 98.5 86 20 149/71 97 Room Air Intake & Output 09/15 1600 09/15 0800 09/15 0000 Intake Total 300 1000 Output Total 1325 Balance -6158 225 6027 Intake, IV 1000 Intake, Oral 300 Output, Urine 1325 Patient 136.531 kg 137.438 kg Weight Weight Reported by Patient Measurement Method Physical Exam General Appearance: Alert, Oriented X3, Cooperative, No Acute Distress Other Physical Findings: GEN: morbidly obese middle aged woman in no acute distress HEENT: NCAT, PERRL, EOMI, anicteric sclera, MMM CARD: Normal s1/s2 w/o m/g/r; RRR PULM: CTA bilaterally ABD: Soft, NT, ND, BS+ NEURO: Awake and alert, CN II-XII grossly intact EXT: 4+ bilateral lower extermity pitting edema, mild left lower extremity erythema to mid calf, severe tenderness to left ankle, no skin breakdown or deformity Current Medications: Current Medications Sig/Yaz Start time Last Medication Dose Route Stop Time Status Admin Acetaminophen 650 MG Q6P PRN 09/15 021 DC 09/15 PO 0532 Acetaminophen 0 .STK-MED ONE 09/14 2153 DC IV Acetaminophen 1,000 MG ONCE ONE 09/14 2114 DC 09/14 N/A 1 UNIT IV 02/13 2129 2155 Acetaminophen/ 1 TAB Q6P PRN 09/15 1015 AC 09/15 Codeine Phosphate PO 1120 Albuterol Sulfate 2 PUF Q4-6 PRN PRN 09/15 0230 AC INH Ampicillin Sodium/ 0 .STK-MED ONE 09/14 2055 DC Sulbactam Sodium .ROUTE Ampicillin Sodium/ 3,000 MG ONCE ONE 09/14 2044 DC 09/14 Sulbactam Sodium IV 09/14 Sodium Chloride 100 ML Aspirin Buffered 81 MG DAILY 09/15 1000 AC 09/15 PO 0835 Atorvastatin Calcium 5 MG 1700 09/15 1700 AC PO Budesonide/ 2 PUF BID 09/15 1000 AC 09/15 Formoterol Fumarate INH 0837 Bupropion HCl 300 MG QAM 09/15 1000 AC 09/15 PO 0836 Bupropion HCl 150 MG QAM 09/15 1000 AC 09/15 PO 0836 Buspirone HCl 20 MG TID 09/15 1000 AC 09/15 PO 0834 Cefazolin Sodium 1,000 MG IQ8 09/15 0800 AC 09/15 IV 0833 Duloxetine HCl 60 MG BID 09/15 1000 AC 09/15 PO 0835 Enoxaparin Sodium 40 MG DAILY 09/15 1000 AC 09/15 SC 0835 Furosemide 20 MG DAILY 09/15 1000 AC 09/15 PO 0835 Gabapentin 300 MG Q8 09/15 1400 AC 09/15 PO 1508 Gabapentin 600 MG BID 09/15 1000 DC PO Gabapentin 300 MG QAM 09/15 1000 DC PO Glycerin 2 SPRAY TID PRN 09/15 0245 AC PO Ibuprofen 800 MG TIDPRN PRN 09/15 1015 AC 09/15 PO 1120 Insulin Aspart 0 TIDAC 09/15 0800 AC SC Levothyroxine Sodium 0.2 MG DAILY AC 09/15 0700 AC 09/15 PO 0532 Lisinopril 10 MG DAILY 09/15 1000 AC 09/15 PO 0836 Omeprazole 40 MG DAILY AC 09/15 0700 AC 09/15 PO 0532 Sodium Chloride 1,000 ML BOLUS ONE 09/14 2044 DC 09/14 IV 09/14 Last 24 Hrs of Lab/Erick Results Last 24 Hrs of Labs/Mics: Laboratory Tests 09/15/17 0708: Anion Gap 7, Estimated GFR > 60, BUN/Creatinine Ratio 11.3, Lactic Acid 0.9, CBC w Diff NO MAN DIFF REQ, RBC 4.05 L, MCV 81.6, MCH 26.5 L, MCHC 32.5 L, RDW 16.4 H, MPV 8.4, Gran % 60.8, Lymphocytes % 25.4, Monocytes % 7.5, Eosinophils % 5.5 H, Basophils % 0.8, Absolute Granulocytes 2.9, Absolute Lymphocytes 1.2, Absolute Monocytes 0.4, Absolute Eosinophils 0.3, Absolute Basophils 0 09/14/172139: Lactic Acid Cancelled 09/14/171854: Anion Gap 8, Estimated GFR > 60, BUN/Creatinine Ratio 12.9, Glucose 96, Lactic Acid 1.5, Calcium 9.9, Total Bilirubin 0.4, AST 25, ALT 28, Alkaline Phosphatase 64, Total Protein 7.1, Albumin 4.3, Globulin 2.8, Albumin/Globulin Ratio 1.5, CBC w Diff NO MAN DIFF REQ, RBC 4.49, MCV 81.4, MCH 26.8 L, MCHC 32.9 L, RDW 16.5 H, MPV 8.2, Gran % 61.4, Lymphocytes % 28.2, Monocytes % 5.7, Eosinophils % 4.0, Basophils % 0.7, Absolute Granulocytes 5.1, Absolute Lymphocytes 2.4, Absolute Monocytes 0.5, Absolute Eosinophils 0.3, Absolute Basophils 0.1 Microbiology 09/14 1930 BLOOD: Blood Culture - RES 09/14 1854 BLOOD: Blood Culture - RES Assessment/Plan Assessment: 47 year old morbidly obese woman with multiple medical problems significant for chronic lymphedema and hospitalization for cellulitis in April 2017 seen for evaluation of pain and swelling with redness to the left leg for which she was treated with oral clindamycin as an outpatient. She developed a rash shortly after starting this medicaiton for which she came to the [place] ED and was admitted for intravneous antibiotics. Patient remains afebrile without leukocytosis while on intravenous Cefazolin. Lower extremity doppler is unremarkable. Patient is complaining of severe pain that was apparently well controlled as an outpatient on tylenol #3, which was restarted. Clinically she appears to have mild cellulitis that failed outpatient therapy. She does admit to a history of MRSA, but currently doesn not have purulent drainage. Problem list -Left lower extremity cellulitis, on Cefazolin -Hypertension -Hyperlipidemia -Morbid Obesity -Asthma -Anxiety / Depression -Non-insulin dependent diabetes mellitus -Chronic lower extremity lymphedema -Peripheral neuropathy Plan -General Medicine -Elevate left leg -Accuchecks TIDAC/HS with Novolog SSI -Hold oral hypoglycemics -Cefazolin 1 g IV Q8H -Follow up blood cultures; NGTD -Pain control with Tylenol #3 and ibuprofen -Diabetic Diet -DVT PPx with lovenox -FULL CODE Problem List: 1. Cellulitis Pain Ratin Pain Location: Left leg Pain Goal: Pain 4 or less Pain Plan: See assessment Tomorrow's Labs & Rationales: None
[2017-09-15 08:22] LABS: ABSOLUTE BASOPHIL COUNT 0 /CUMM (0.0-0.2); ABSOLUTE EOSINOPHIL COUNT 0.3 /CUMM (0.0-0.7); ABSOLUTE GRANULOCYTE CT 2.9 /CUMM (1.4-6.5); ABSOLUTE LYMPH COUNT 1.2 /CUMM (1.2-3.4); ABSOLUTE MONOCYTE COUNT 0.4 /CUMM (0.10-0.60); BASOPHIL % 0.8 % (0.0-2.0); EOSINOPHIL % 5.5 % (0-5); GRANULOCYTE % 60.8 % (42.2-75.2); MEAN CORPUSCULAR HGB 26.5 PG (27.0-31.0); MEAN CORPUSCULAR HGB CONC 32.5 G/DL (33.0-37.0); MEAN CORPUSCULAR VOLUME 81.6 FL (81.0-99.0); MEAN PLATELET VOLUME 8.4 FL (7.4-10.4); PLATELET COUNT 186 /CUMM (130-400); RBC DISTRIBUTION WIDTH 16.4 % (11.5-14.5); RED BLOOD CELL CT 4.05 /CUMM (4.20-5.40); WHITE BLOOD CELL COUNT 4.8 /CUMM (4.8-10.8)
--- NOTE | 2017-09-15 11:08 | ULTRASOUND REPORT ---
EXAMINATION: US TRIPLEX LOWER EXTREMITY, LEFT CLINICAL INFORMATION: This is a 47-year-old female with left leg cellulitis. COMPARISON: None TECHNIQUE: Color-flow triplex imaging with spectral analysis and compression Doppler were performed on the lower extremity. The study was somewhat limited due to the patient's body habitus. FINDINGS: Respiratory variation, normal compression and augmented flow are noted throughout the lower extremity. The visualized common femoral vein, superficial femoral vein, profunda femoral vein, popliteal vein and midcalf peroneal and posterior tibial venous segments show no evidence of deep venous thrombosis. There is no Chen's cyst. IMPRESSION: Normal triplex scan without evidence of deep venous thrombosis involving the lower extremity.
--- NOTE | 2017-09-15 12:27 | PN- Att Addend ---
Attending Addendum Attending Brief Note Patient seen and examined, feeling somewhat better today. Left lower extremity erythema is slightly improved. Vital Signs Date Time Temp Pulse Resp B/P B/P Pulse O2 O2 Flow FiO2 Mean Ox Delivery Rate 09/15 1026 Room Air 09/15 0606 97.5 83 20 116/70 96 Room Air 09/15 0200 97.9 76 20 110/68 95 Room Air 09/15 0152 97.0 84 15 110/56 96 Room Air 09/14 2316 97.9 79 18 150/76 97 Room Air 09/14 2010 98.5 86 20 149/71 97 Room Air 09/14 1353 96.8 97 18 128/70 96 Room Air on exam; aox nad. cv; s1, s2, rrr resp; clear. abd; sot, nt, bs+ ext; + edema, erythema lle. Laboratory Tests 09/15 09/14 0708 2140 Chemistry Sodium (137 - 145 mmol/L) 140 Potassium (3.5 - 5.1 mmol/L) 4.3 Chloride (98 - 107 mmol/L) 102 Carbon Dioxide (22 - 30 mmol/L) 30 Anion Gap (5 - 16) 7 BUN (7 - 17 mg/dL) 9 Creatinine (0.5 - 1.0 mg/dL) 0.8 Estimated GFR (>60 ml/min) > 60 BUN/Creatinine Ratio (7 - 25 %) 11.3 Lactic Acid (0.7 - 2.1 mmol/L) 0.9 Cancelled Hematology CBC w Diff NO MAN DIFF REQ WBC (4.8 - 10.8 /CUMM) 4.8 RBC (4.20 - 5.40 /CUMM) 4.05 L Hgb (12.0 - 16.0 G/DL) 10.7 L Hct (37 - 47 %) 33.0 L MCV (81.0 - 99.0 FL) 81.6 MCH (27.0 - 31.0 PG) 26.5 L MCHC (33.0 - 37.0 G/DL) 32.5 L RDW (11.5 - 14.5 %) 16.4 H Plt Count (130 - 400 /CUMM) 186 MPV (7.4 - 10.4 FL) 8.4 Gran % (42.2 - 75.2 %) 60.8 Lymphocytes % (20.5 - 51.1 %) 25.4 Monocytes % (1.7 - 9.3 %) 7.5 Eosinophils % (0 - 5 %) 5.5 H Basophils % (0.0 - 2.0 %) 0.8 Absolute Granulocytes (1.4 - 6.5 /CUMM) 2.9 Absolute Lymphocytes (1.2 - 3.4 /CUMM) 1.2 Absolute Monocytes (0.10 - 0.60 /CUMM) 0.4 Absolute Eosinophils (0.0 - 0.7 /CUMM) 0.3 Absolute Basophils (0.0 - 0.2 /CUMM) 0 09/14 1855 Chemistry Sodium (137 - 145 mmol/L) 136 L Potassium (3.5 - 5.1 mmol/L) 4.4 Chloride (98 - 107 mmol/L) 97 L Carbon Dioxide (22 - 30 mmol/L) 31 H Anion Gap (5 - 16) 8 BUN (7 - 17 mg/dL) 9 Creatinine (0.5 - 1.0 mg/dL) 0.7 Estimated GFR (>60 ml/min) > 60 BUN/Creatinine Ratio (7 - 25 %) 12.9 Glucose (65 - 99 mg/dL) 96 Lactic Acid (0.7 - 2.1 mmol/L) 1.5 Calcium (8.4 - 10.2 mg/dL) 9.9 Total Bilirubin (0.2 - 1.3 mg/dL) 0.4 AST (14 - 36 U/L) 25 ALT (9 - 52 U/L) 28 Alkaline Phosphatase (<127 U/L) 64 Total Protein (6.3 - 8.2 g/dL) 7.1 Albumin (3.5 - 5.0 g/dL) 4.3 Globulin (1.9 - 4.2 gm/dL) 2.8 Albumin/Globulin Ratio (1.1 - 2.2 %) 1.5 Hematology CBC w Diff NO MAN DIFF REQ WBC (4.8 - 10.8 /CUMM) 8.4 RBC (4.20 - 5.40 /CUMM) 4.49 Hgb (12.0 - 16.0 G/DL) 12.0 Hct (37 - 47 %) 36.6 L MCV (81.0 - 99.0 FL) 81.4 MCH (27.0 - 31.0 PG) 26.8 L MCHC (33.0 - 37.0 G/DL) 32.9 L RDW (11.5 - 14.5 %) 16.5 H Plt Count (130 - 400 /CUMM) 258 MPV (7.4 - 10.4 FL) 8.2 Gran % (42.2 - 75.2 %) 61.4 Lymphocytes % (20.5 - 51.1 %) 28.2 Monocytes % (1.7 - 9.3 %) 5.7 Eosinophils % (0 - 5 %) 4.0 Basophils % (0.0 - 2.0 %) 0.7 Absolute Granulocytes (1.4 - 6.5 /CUMM) 5.1 Absolute Lymphocytes (1.2 - 3.4 /CUMM) 2.4 Absolute Monocytes (0.10 - 0.60 /CUMM) 0.5 Absolute Eosinophils (0.0 - 0.7 /CUMM) 0.3 Absolute Basophils (0.0 - 0.2 /CUMM) 0.1 A/P; 47 y/o F with pmh sig for hypothyroidism, hypertension, hyperlipidemia, anxiety, depression, asthma, qdw-sebsgwp-rolijvfwd diabetes mellitus, chronic lymphedema, admitted with lle cellulitis, failing outpatient treatment. Will continue IV cefazolin, will follow up blood cultures. Will check with pharmacy if the dose is the right dose for the patient this needs to be increased. Continue the rest of the medications. DVT prophylaxis: Lovenox.
[2017-09-15 14:32] VITALS: BP 110/72
[2017-09-15 22:15] VITALS: BP 112/62
[2017-09-16 06:00] VITALS: BP 140/86
--- NOTE | 2017-09-16 07:19 | PN- Housestaff ---
Muna MONTALVO,Rian 09/16/17 0718: Subjective Follow-up For: LLE Cellulitis Subjective: Patient seen and examined. She is seen sitting upright in bed resting comfortably enjoying her breakfast. She appears to be in no acute distress. She reports feeling well and admits that her leg looks "much better" today. She does admit to some persistent tenderness to her ankle tracking up her mid ruiz. She otherwise denies any new complaints or any fever or chills. Review of Systems Constitutional: Reports: see HPI. Objective Last 24 Hrs of Vital Signs/I&O Vital Signs Date Time Temp Pulse Resp B/P B/P Pulse O2 O2 Flow FiO2 Mean Ox Delivery Rate 09/16 0827 70 132/80 09/16 0600 98.1 83 18 140/86 94 Room Air 09/15 2215 98.8 90 19 112/62 98 Room Air 09/15 1432 98.1 94 18 110/72 96 09/15 1026 Room Air Intake & Output 09/16 1600 09/16 0800 09/16 0000 Intake Total 320 310 Output Total Balance 320 310 Intake, IV 20 10 Intake, Oral 300 300 Physical Exam General Appearance: Alert, Oriented X3, Cooperative, No Acute Distress Other Physical Findings: GEN: morbidly obese middle aged woman in no acute distress HEENT: NCAT, PERRL, EOMI, anicteric sclera, MMM CARD: Normal s1/s2 w/o m/g/r; RRR PULM: CTA bilaterally ABD: Soft, NT, ND, BS+ NEURO: Awake and alert, CN II-XII grossly intact EXT: 4+ bilateral lower extermity pitting edema, mild left lower extremity erythema to mid calf, mild tenderness to left ankle, no skin breakdown or deformity Current Medications: Current Medications Sig/Yaz Start time Last Medication Dose Route Stop Time Status Admin Acetaminophen 650 MG Q6P PRN 09/15 0215 DC 09/15 PO 0532 Acetaminophen/ 5 ML .STK-MED ONE 09/15 1112 DC Codeine Phosphate PO 09/15 1113 Acetaminophen/ 1 TAB Q6P PRN 09/15 1015 AC 09/15 Codeine Phosphate PO 2048 Albuterol Sulfate 2 PUF Q4-6 PRN PRN 09/15 0230 AC INH Aspirin Buffered 81 MG DAILY 09/15 1000 AC 09/16 PO 0828 Atorvastatin Calcium 5 MG 1700 09/15 1700 AC 09/15 PO 1641 Budesonide/ 2 PUF BID 09/15 1000 AC 09/16 Formoterol Fumarate INH 0827 Bupropion HCl 300 MG QAM 09/15 1000 AC 09/16 PO 0827 Bupropion HCl 150 MG QAM 09/15 1000 AC 09/16 PO 0827 Buspirone HCl 20 MG TID 09/15 1000 AC 09/16 PO 0828 Cefazolin Sodium 1,000 MG IQ8 09/15 0800 AC 09/16 IV 0821 Duloxetine HCl 60 MG BID 09/15 1000 AC 09/16 PO 0828 Enoxaparin Sodium 40 MG DAILY 09/15 1000 AC 09/15 SC 0835 Furosemide 20 MG DAILY 09/15 1000 AC 09/16 PO 0827 Gabapentin 300 MG Q8 09/15 1400 AC 09/16 PO 0548 Gabapentin 600 MG BID 09/15 1000 DC PO Gabapentin 300 MG QAM 09/15 1000 DC PO Glycerin 2 SPRAY TID PRN 09/15 0245 AC PO Ibuprofen 800 MG .STK-MED ONE 09/15 1113 DC PO 09/15 1114 Ibuprofen 800 MG TIDPRN PRN 09/15 1015 AC 09/15 PO 1120 Insulin Aspart 0 TIDAC 09/15 0800 AC SC Levothyroxine Sodium 0.2 MG DAILY AC 09/15 0700 AC 09/16 PO 0549 Lisinopril 10 MG DAILY 09/15 1000 AC 09/16 PO 0827 Omeprazole 40 MG DAILY AC 09/15 0700 AC 09/16 PO 0548 Assessment/Plan Assessment: 47 year old morbidly obese woman with multiple medical problems significant for chronic lymphedema and hospitalization for cellulitis in April 2017 seen for evaluation of pain and swelling with redness to the left leg for which she was treated with oral clindamycin as an outpatient. She developed a rash shortly after starting this medicaiton for which she came to the [place] ED and was admitted for intravneous antibiotics. Patient continues to remain afebrile while on intravenous Cefazolin. Blood cultures remain no growth to day. She appears to have clinically improving cellulitis. She is to be transitioned to oral Keflex for a seven total day antibiotic course and discharged to home with instruction to follow up with her PCP and keep her leg elevated when at rest. Problem list -Left lower extremity cellulitis, on Cefazolin -Hypertension -Hyperlipidemia -Morbid Obesity -Asthma -Anxiety / Depression -Non-insulin dependent diabetes mellitus -Chronic lower extremity lymphedema -Peripheral neuropathy Plan -General Medicine -Elevate left leg -Accuchecks TIDAC/HS with Novolog SSI -Hold oral hypoglycemics -Cefazolin 1 g IV Q8H -Follow up blood cultures; NGTD -Pain control with Tylenol #3 and ibuprofen -Diabetic Diet -DVT PPx with lovenox -FULL CODE Problem List: 1. Cellulitis Pain Ratin Pain Location: Left leg Pain Goal: Pain 4 or less Pain Plan: See assessment Tomorrow's Labs & Rationales: None Calli Rutherford MD 09/16/17 1131: Attending MD Review Statement Attending Statement Attending MD Statement: examined this patient, discuss w/resident/PA/GRID CASTER, agreed w/resident/PA/GRID CASTER, reviewed EMR data (avail), discussed with nursing, discussed with case mgmt, reviewed images, amended to note Attending Assessment/Plan: Patient seen and examined, overall doing much better. The left lower extremity has improved significantly. Erythema is much better. Patient remains afebrile with white count normal. Overall improved clinically significantly. Patient medically stable for discharge home today. She will be discharged on oral antibiotics.
[2017-09-16] MEDS ORDERED: KEFLEX500 M1 PO ×4 (07:23→10:00)
--- NOTE | 2017-09-16 07:26 | Patient Discharge Instructions ---
Discharge Instructions General Discharge Information Special Instructions: Keep your leg elevated above the level of your heart when at rate, avoid tight fitting clothing. Take Keflex as directed, be sure to finish this medication. Continue all your previous medications. Follow up with your PCP after discharge. Call 911 or return to the ED should your condition worsen or if you developed signs of drainage, fever, or chills. Acute Coronary Syndrome Inclusion Criteria At DC or during hospital stay patient has or had the following: ACS DIAGNOSIS No Discharge Core Measures Meds if any: Prescribed or Continued at Discharge Meds if any: NOT Prescribed or Continued at Discharge Congestive Heart Failure Inclusion Criteria At DC or during hospital stay patient has or had the following: CHF DIAGNOSIS No Discharge Core Measures Meds if any: Prescribed or Continued at Discharge Meds if any: NOT Prescribed or Continued at Discharge Cerebrovascular accident Inclusion Criteria At DC or during hospital stay patient has or had the following: CVA/TIA Diagnosis No Discharge Core Measures Meds if any: Prescribed or Continued at Discharge Meds if any: NOT Prescribed or Continued at Discharge Venous thromboembolism Inclusion Criteria VTE Diagnosis No VTE Type NONE VTE Confirmed by (Test) NONE Discharge Core Measures - Per Current guidelines, there needs to be overlap - treatment for the first 5 days of Warfarin therapy. - If discharged on Warfarin prior to 5 days of - overlap therapy, the patient will need to be - assessed for post discharge needs including - *Post discharge parental anticoagulation - *Warfarin and/or parental anticoagulation education - *Follow up date to check INR post discharge At least 5 days overlap therapy as Inpatient No Meds if any: Prescribed or Continued at Discharge Note: Overlap Therapy is Warfarin and Anticoagulant Meds if any: NOT Prescribed or Continued at Discharge
[2017-09-16 08:27] VITALS: BP 132/80
--- NOTE | 2017-09-16 10:40 | Discharge Summary ---
Visit Information Visit Dates Admission Date: 09/14/17 Discharge Date: 09/16/17 Hospital Course Course Attending Physician: Calli Rutherford MD Primary Care Physician: Juan Sainz Hospital Course: 47-year-old woman with past medical history of hypertension, hyperlipidemia, anxiety, depression, hypothyroidism, asthma, chronic lower extremity lymphedema, and zpu-skftphg-epvrjqixx diabetes mellitus seen for evaluation of pain, redness , and swelling of her left leg for the past week for which she saw her PCP on the prior to admission whom prescribed clindamycin and Tylenol with codeine for concern of cellulitis. Patient developed a rash shortly thereafter with worsening of her symptoms and new nausea with fever and chills for which she reported to the [place] ED for evaluation. ED course -Vitals: Temp 96.8-98.5, HR 79-97, RR 15-20, BP 110-150/56-76, O2 96-97% on room air -CBC: WBC 8.4, Hgb/HCT 12.0/36.6, platelets 258 -BMP: Sodium 136, potassium 4.4, chloride 97, CO2 31, urea 9, creatinine 0.7 -LFT: Within normal limits -Miscellaneous: Lactic acid 1.5, 0.9 -X-ray left foot complete: Diffuse soft tissue swelling without evidence for acute osseous injury -Left lower extremity venous Doppler: Normal triplex scan without evidence of deep pain is thrombosis -ED interventions: * Blood cultures 2 Problem list on admission -Left lower extremity cellulitis -Hypertension -Hyperlipidemia -Anxiety/depression -Chronic lower extremity lymphedema -Asthma -Lux-ybswmvj-goillowny diabetes mellitus -Peripheral neuropathy Hospital course Patient was admitted to the general medicine floor for failed outpatient treatment of left lower extremity cellulitis. Patient received a dose of Unasyn in the ED but was continued on intravenous Cefazolin. Hospital course she remained afebrile without leukocytosis. Blood cultures remain no growth to date at time of discharge. Her leg was kept elevated. Patient had dramatic clinical improvement. She is discharged to home with oral Keflex to complete a 7 day total course of antibiotics with instruction to follow-up with her PCP after discharge and to call 911 or report to the ED should her symptoms worsen. Allergies: Coded Allergies: Latex, Natural Rubber (RASH 12/21/16) Significant Procedures: SERVICE DATE: 09/14/17-1839 EXAM TYPE: RAD - XRY-FOOT COMPLETE, LEFT IMPRESSION: Diffuse soft tissue swelling. No evidence for acute osseous injury. No bony destruction demonstrable. SERVICE DATE: 09/15/17- EXAM TYPE: US - US-UNILATERAL VENOUS DOPPLER IMPRESSION: Normal triplex scan without evidence of deep venous thrombosis involving the lower extremity. Disposition Summary Disposition Principal Diagnosis: Left lower extremity cellulitis Additional Diagnosis: None Discharge Disposition: home or self care Discharge Instructions General Discharge Information Code Status: Full Code Patient's Diet: Diabetic diet Patient's Activity: Return to full activity as tolerated, keep leg elevated above level of heart while at rest Follow-Up Instructions/Appts: Keep your leg elevated above the level of your heart when at rate, avoid tight fitting clothing. Take Keflex as directed, be sure to finish this medication. Continue all your previous medications. Follow up with your PCP after discharge. Call 911 or return to the ED should your condition worsen or if you developed signs of drainage, fever, or chills. Medications at Discharge Discharge Medications: Continue taking these medications: Lisinopril (Lisinopril) 10 MG TABLET 1 Tablet ORAL DAILY Qty = 90 Comments: Last Taken: 09/16/17 Time: 0830 AM Gabapentin (Gabapentin) 300 MG CAPSULE 1 Capsule ORAL THREE TIMES DAILY Qty = 150 Comments: Last Taken:04/29/17 Time: 9 AM Duloxetine HCl (Duloxetine HCl) 60 MG CAPSULE.DR 1 Capsule ORAL TWICE DAILY Qty = 60 Comments: Last Taken: 09/16/17 Time: 0830 AM Bupropion HCl (Wellbutrin XL) 300 MG TAB.ER.24H 1 Tablet ORAL Every Morning Comments: Last Taken: 09/16/17 Time: 0830 AM Bupropion HCl (Bupropion XL) 150 MG TAB.ER.24H 1 Tablet ORAL Every Morning Qty = 30 Comments: Last Taken: 09/16/17 Time: 0830 AM Buspirone HCl (Buspirone HCl) 10 MG TABLET 2 Tablet ORAL THREE TIMES DAILY Qty = 180 Comments: Last Taken: 09/16/17 Time: 0830 am Simvastatin (Simvastatin*) 10 MG TABLET 1 Tablet ORAL Every night Qty = 30 Comments: Last Taken: 09/15/17 Time: 5 PM Glimepiride (Glimepiride) 1 MG TABLET 1 Tablet ORAL Every Morning Qty = 30 Comments: NOT TAKEN IN HOSPITAL Albuterol Sulfate (Ventolin Hfa) 90 MCG HFA.AER.AD 2 Puff Inhale through mouth EVERY 4-6 HOURS NEEDED as needed for ASTHMA Qty = 18 Comments: NOT GIVEN IN HOSPITAL Omeprazole (Omeprazole) 40 MG CAPSULE.DR 1 Capsule ORAL DAILY Qty = 30 Comments: Last Taken: 09/16/17 Time: 6 AM Levothyroxine Sodium (Levothyroxine Sodium) 200 MCG TABLET 1 Tablet ORAL DAILY BEFORE BREAKFAST Qty = 30 Comments: Last Taken: 09/16/17 Time: 6 AM Metformin HCl (Metformin HCl) 1,000 MG TABLET 1 Tablet ORAL TWICE DAILY Qty = 180 Comments: NOT TAKEN IN HOSPITAL Budesonide/Formoterol Fumarate (Symbicort 80-4.5 Mcg Inhaler) 80 MCG-4.5 MCG/ ACTUATION HFA.AER.AD 2 Puff Inhale through mouth TWICE DAILY Qty = 10 Comments: Last Taken: 09/16/17 Time: 0830 AM Ibuprofen (Ibuprofen) 800 MG TABLET 1 Tablet ORAL THREE TIMES DAILY Qty = 30 Comments: NOT TAKEN IN HOSPITAL Saliva Substitute Combo No.9 (Biotene Pbf) 473 ML MOUTHWASH 5 Milliliters ORAL THREE TIMES DAILY as needed for MUCOUS Comments: NOT GIVEN IN HOSPTIAL Diclofenac Sodium (Voltaren) 1 % GEL..GRAM. 1 Gram On the skin 4 TIMES A DAY Instructions: apply to affected area(s) Comments: NOT GIVEN IN HOSPITAL Furosemide (Furosemide) 20 MG TABLET 1 Tablet ORAL DAILY Qty = 90 Comments: Last Taken: 09/16/17 Time: 0830 AM Tramadol HCl (Tramadol HCl) 50 MG TABLET 1 Tablet ORAL THREE TIMES A DAY NEEDED as needed for PAIN Comments: NOT TAKEN IN HOSPITAL Aspirin (Ecotrin*) 81 MG TABLET.DR 1 Tablet ORAL DAILY Days = 30 Comments: Last Taken:09/16/17 Time: 0830 AM Start taking the following new medications: Cephalexin (Keflex) 500 MG CAPSULE 1 Capsule ORAL EVERY SIX HOURS Qty = 22 No Refills Instructions: TAKE DIRECTED Copies To: Yuni GROSS,Juan Ocampo
== END 2017-09-16 11:31 | DRG 603 ==
LOC: ERH 13:29 → ERHI 21:50 → 2NA 21:50 → ENRESERV 09-15 00:53 → 2NA 09-15 01:54 → ENPENDDIS 09-16 10:03 → ENTRNSPT 09-16 11:01 → EDTRNSPT 09-16 11:21 → EDTRNSPTSTS 09-16 11:21 → 2NA 09-16 11:31 → CMPTRNSPT 09-16 11:41
PROVIDERS: Physician Assistant; Student in an Organized Health Care Education/Training Program
DX: L03.116 Cellulitis of left lower limb (principal); E66.01 Morbid (severe) obesity due to excess calories; Z68.42 Body mass index [BMI] 45.0-49.9, adult; G62.9 Polyneuropathy, unspecified; I89.0 Lymphedema, not elsewhere classified; E66.9 Obesity, unspecified; E11.9 Type 2 diabetes mellitus without complications; E78.5 Hyperlipidemia, unspecified; F41.9 Anxiety disorder, unspecified; F32.9 Major depressive disorder, single episode, unspecified; E03.9 Hypothyroidism, unspecified; J45.909 Unspecified asthma, uncomplicated
CPT/HCPCS: 2NASP; ERO; 36592; 73630-LT; 82436; 87040; J0131; J0690; J1650; J3490